=== PATIENT | male | born 1975 | race Caucasian/White ===

== ENCOUNTER 2022-04-21 16:07 | Outpatient (CLI) | payer BC, SELFPAY ==
[2022-04-21 15:38] LABS: Sodium* 139 mmol/L (135-149)
[2022-04-21 15:40] LABS: Bilirubin Total* 1.5 mg/dL (0.1-1.5); Blood Urea Nitrogen* 15 mg/dL (5-24); Estimated Glomerular Filt Rate 92 ml/min
[2022-04-21 15:41] LABS: Alkaline Phosphatase* 75 U/L (40-150); HDL Cholesterol* 40 mg/dL (>=40)
[2022-04-21 16:34] LABS: Albumin* 4.9 g/dL (3.3-5.0)
[2022-04-21 16:35] LABS: Chloride* 101 mmol/L (96-114); Potassium* 4.4 mmol/L (3.6-5.1)
[2022-04-21 16:37] LABS: Carbon Dioxide* 30 mmol/L (20-32); Cholesterol* 152 mg/dL (90-199); Total Protein* 7.6 g/dL (6.0-8.3)
[2022-04-21 16:38] LABS: Alanine Aminotransferase* 113 U/L (4-50); Aspartate Amino Transferase* 65 U/L (12-35); Calcium* 9.7 mg/dL (8.4-10.6); Glucose* 102 mg/dL (60-115); LDL Cholesterol Calculated 86 mg/dL (<100); Triglycerides* 131 mg/dL (40-149)
[2022-04-21 17:02] LABS: PSA Screen* 0.46 ng/mL (0.10-4.00)
== END 2022-04-21 16:08 | disposition home or self-care (01) ==
PROVIDERS: PCP Family Medicine; Visit Provider Family Medicine
DX: E78.00 Pure hypercholesterolemia, unspecified (principal); I10 Essential (primary) hypertension; Z12.5 Encounter for screening for malignant neoplasm of prostate
CPT/HCPCS: 80053; 80061; 84153

== ENCOUNTER 2022-05-26 12:30 | Outpatient (CLI) | payer BC, SELFPAY ==
--- NOTE | 2022-05-26 13:55 | W.ANESCHARGE ---
Anesthesia Charges Start Date/Time Anesthesia Start Date: 05/26/22 Anesthesia Start Time: 13:20 Stop Date/Time Anesthesia Stop Date: 05/26/22 Anesthesia Stop Time: 13:45 Summary Emergency: No
== END 2022-05-26 12:31 | disposition home or self-care (01) ==
PROVIDERS: PCP Family Medicine; Visit Provider Surgery
DX: Z12.11 Encounter for screening for malignant neoplasm of colon (principal); K63.5 Polyp of colon; N42.9 Disorder of prostate, unspecified
CPT/HCPCS: 00811; 45385; 88305; J2704

== ENCOUNTER 2023-11-21 08:06 | Outpatient (CLI) | payer BC, SELFPAY | END 2023-11-21 08:07 | disposition home or self-care (01) | LOC: NFLDREF 11-24 06:04 | PROVIDERS: PCP Family Medicine; Referring Provider Family Medicine; Visit Provider Family Medicine | DX: E78.00 Pure hypercholesterolemia, unspecified (principal); I10 Essential (primary) hypertension; Z12.5 Encounter for screening for malignant neoplasm of prostate | CPT/HCPCS: 80053; 80061; G0103 ==

== ENCOUNTER 2024-01-25 08:20 | Outpatient (CLI) | payer BC, SELFPAY | END 2024-01-25 08:21 | disposition home or self-care (01) | LOC: NFLDREF 01-29 16:20 | PROVIDERS: PCP Family Medicine; Referring Provider Family Medicine; Visit Provider Family Medicine | DX: I10 Essential (primary) hypertension (principal); E78.00 Pure hypercholesterolemia, unspecified; R79.89 Other specified abnormal findings of blood chemistry; Z12.5 Encounter for screening for malignant neoplasm of prostate | CPT/HCPCS: 80053; 80061; G0103 ==

== ENCOUNTER 2024-01-29 18:29 | Outpatient (CLI) | payer BC, SELFPAY | END 2024-01-29 18:30 | disposition home or self-care (01) | LOC: LKVREF 18:31 | PROVIDERS: PCP Family Medicine; Visit Provider Family Medicine | DX: Z00.00 Encounter for general adult medical examination without abnormal findings (principal); R53.83 Other fatigue; R79.89 Other specified abnormal findings of blood chemistry; E78.00 Pure hypercholesterolemia, unspecified; I10 Essential (primary) hypertension | CPT/HCPCS: 84270; 84402; 84403 ==

== ENCOUNTER 2025-01-07 07:57 | Outpatient (CLI) | payer BC, SELFPAY ==
--- NOTE | 2025-01-14 12:00 | W.PM.SLEEP ---
Sleep Study Details Details Interpreting Provider: Evert Date of Sleep Study: 01/07/25 Sleep Study Details: STUDY TYPE:? Home unattended ? BMI:? 31.75 ORDERING PROVIDER:? Evert INDICATION:? Concern about sleep apnea ? SLEEP SUMMARY:? 388 minutes monitored RESPIRATORY SUMMARY:? AHI 19 per rule [id number] per CMS guideline Low oxygen 80 14.8% of study oxygen less than 90% Snoring 56.5% PERIODIC LIMB MOVEMENTS OF SLEEP:? Not recorded CARDIAC:? Range 43-78, mean 53.2 beats per minute IMPRESSION:? Moderate obstructive sleep apnea RECOMMENDATION: Treatment options include CPAP or dental appliance or airway expansion surgery.
== END 2025-01-07 07:58 | disposition home or self-care (01) ==
PROVIDERS: PCP Family Medicine; Visit Provider Family Medicine
DX: G47.33 Obstructive sleep apnea (adult) (pediatric) (principal)
CPT/HCPCS: 95806